=== PATIENT | male | born 1960 | race Caucasian/White ===

== ENCOUNTER → 2024-09-24 15:27 | Outpatient (REF) | payer OTHER, SELFPAY | LOC: MRI 3T 15:27 | PROVIDERS: ATTENDING PHYSICIAN Specialist; FAMILY PHYSICIAN Family Medicine | DX: R97.20 Elevated prostate specific antigen [PSA] (principal); Z12.5 Encounter for screening for malignant neoplasm of prostate; Z80.42 Family history of malignant neoplasm of prostate | CPT/HCPCS: 72197; A9575 ==